=== PATIENT | male | born 1970 | race Caucasian/White ===

== ENCOUNTER 2025-08-16 07:58 | Outpatient (CLI) | payer BC, SELFPAY ==
--- NOTE | 2025-08-16 09:06 | P.ANES_ITS ---
Anesthesia Charges Start Date/Time Anesthesia Start Date: 08/16/25 Anesthesia Start Time: 08:43 Stop Date/Time Anesthesia Stop Date: 08/16/25 Anesthesia Stop Time: 09:03 Coding CPT Codes CPT Codes: ANES LWR INTST NDSC NOS - [id number] ([id number]) P1 - NORMAL HEALTHY PATIENT, QZ - CREW LEADER GLUING SVC W/O DRILL INSTRUCTOR BY
--- NOTE | 2025-08-16 09:06 | W.ANESCHARGE ---
Anesthesia Charges Start Date/Time Anesthesia Start Date: 08/16/25 Anesthesia Start Time: 08:43 Stop Date/Time Anesthesia Stop Date: 08/16/25 Anesthesia Stop Time: 09:03 Coding CPT Codes CPT Codes: ANES LWR INTST NDSC NOS - [id number] ([id number]) P1 - NORMAL HEALTHY PATIENT, QZ - SOFT MUD MOLDER SVC W/O HYDRO EXCAVATION OPERATOR BY
== END 2025-08-16 07:59 | disposition home or self-care (01) ==
LOC: OP CLINIC 07:59
PROVIDERS: PCP Family Medicine; Visit Provider Internal Medicine
DX: Z12.11 Encounter for screening for malignant neoplasm of colon (principal); D12.0 Benign neoplasm of cecum
CPT/HCPCS: 00811; 00812; 45380; J2704